=== PATIENT | female | born 1970 | race Caucasian/White ===

== ENCOUNTER 2022-07-15 13:28 | Outpatient (CLI) | payer OTHER, SELFPAY ==
--- NOTE | 2022-07-15 13:30 | DI.RAD.S_ITS ---
PROCEDURE: PAIN C/T INTERLAMINAR INJECT INDICATIONS: SPINAL STENOSIS COMPARISON: [facility], CR, XR CERVICAL SPINE WITH FLEXION EXTENSION, 06/18/2021, 15:13. FINDINGS: Fluoroscopic spot filming was performed to verify placement of a spinal needle at the C7-T1 level, as labeled on the films. Appropriate location of the needle tip was confirmed by injection of iodinated contrast. IMPRESSION: Intraprocedural examination within normal limits. Dictated by: Saul Luo M.D. on 07/15/2022 at 14:06 Approved by: Saul Luo M.D. on 07/15/2022 at 14:07
[2022-07-15 13:53] VITALS: BP 144/88; PULSE 69; RESP 18; TEMP 36.3; O2SAT 99
[2022-07-15 14:10] VITALS: BP 143/88; PULSE 67; RESP 16; O2SAT 100
[2022-07-15 14:15] VITALS: BP 145/91; PULSE 74; RESP 18; O2SAT 100
[2022-07-15] MEDS: IOPAMIDOL 15 ML VIAL 3 ML INJ (14:18)
[2022-07-15] MEDS: DEXAMETHASONE 10 MG/ML VIAL 20 MG INJ (14:18)
[2022-07-15 14:19] VITALS: BP 155/91; PULSE 69; RESP 16; O2SAT 100
[2022-07-15 14:25] VITALS: BP 162/91; PULSE 65; RESP 20; O2SAT 99
--- NOTE | 2022-07-15 16:23 | P.PCN_ITS ---
Date/Time/Diagnoses Date of procedure: 07/15/22 Time of procedure: 14:00 Procedure Notes Physician: Chuckie Chi Total Fluoroscopy time (seconds): 17 Total sedation minutes: 0 Procedure in detail & Post-procedure care: C7-T1 Interlaminar Epidural Steroid Injection Indications: Nnia is presenting for treatment of cervical radiculopathy with neck and arm pain. Preoperative diagnosis: Bilateral cervical radiculopathy Postoperative diagnosis: Same Focused Examination: Ax3 Mood and affect are normal Vital Signs: VSS ASA: 2 Consent: Following review of allergies and potential side effects/complications, including, but not necessarily limited to, infection, allergic reaction, local tissue breakdown, stroke, temporary or permanent nerve injury, paralysis, and possible , the patient indicated that they understood and agreed to proceed.? An informed consent document was signed by the patient, witnessed by a nurse and placed in the patient's chart.? Additionally, other treatment options including medications and physical therapy were reviewed with the patient. All questions were answered. Site was then marked. Anesthesia: Local Position: Prone Monitoring: NIBP, Pulse oximetry, 3 lead EKG Needle used: 18 G 3.5? Tuohy Contrast: Isovue 300-M 2 mL Injectate: Dexamethasone 15 mg followed by Normal Saline 1.5 mL Technique: The skin was prepped with chloraprep and then draped in a sterile fashion. Time out was performed as per protocol. Oxygen applied via NC. Skin and subcutaneous structures of the needle entry site was then infiltrated with 3 mL of lidocaine 1%. Under AP, lateral and contralateral oblique fluoroscopic control, the Tuohy needle was guided into the C7-T1 epidural space. The space was accessed with loss of resistance technique. Isovue 300-M was then injected and the spread was consistent with the epidural space. There was no evidence for intravascular or intrathecal uptake. After negative aspiration, the above- mentioned injectate was then slowly administered and the needle withdrawn. The patient expressed no unusual discomfort or paresthesias during the injection. Band-Aids applied to injection sites. EBL: less than 1 ml Complications: None Post Procedure: Patient was taken to the recovery and monitored. The patient was provided a Pain Log to continue to record the patient's response to the target- specific procedure prior to the patient's follow-up visit with the referring physician. Patient was stable upon discharge. Detailed post procedure instructions were provided. Patient was asked to call in the event of worsening pain, fever, weakness, numbness or bladder or bowel incontinence.
== END 2022-07-15 14:40 | disposition home or self-care (01) ==
LOC: RAD 13:30
PROVIDERS: PCP Family Medicine; Referring Provider Anesthesiology; Visit Provider Anesthesiology
DX: M54.12 Radiculopathy, cervical region (principal)
CPT/HCPCS: 62321; J1100; J2250

== ENCOUNTER → 2022-08-10 08:37 | Outpatient (CLI) | payer OTHER, SELFPAY ==
--- NOTE | 2022-08-10 08:39 | DI.RAD.S_ITS ---
PROCEDURE: XR SHOULDER RT MIN 2V INDICATIONS: Right shoulder pain TECHNIQUE: 3 views of the shoulder were acquired. COMPARISON: None. FINDINGS: Bones: No fractures or dislocations. Question subtle ill-defined lucencies in the humeral neck and in the scapula subjacent to the glenoid. Visualized ribs appear intact. Soft tissues: No suspicious soft tissue calcifications. IMPRESSION: 1. No evidence acute bony abnormality. 2. Question subtle lucencies in the humeral neck and scapula. Comment: Recommend shoulder MRI with and without contrast. Dictated by: Ameya Frausto M.D. on 08/10/2022 at 10:25 Approved by: Ameya Frausto M.D. on 08/10/2022 at 10:31
== END ==
PROVIDERS: PCP Family Medicine; Referring Provider Anesthesiology; Visit Provider Anesthesiology
DX: M25.511 Pain in right shoulder (principal)
CPT/HCPCS: 73030

== ENCOUNTER → 2022-08-24 07:36 | Outpatient (CLI) | payer OTHER, SELFPAY ==
--- NOTE | 2022-08-24 07:45 | DI.MRI.S_ITS ---
PROCEDURE: MR SHOULDER RT WO/W CON INDICATIONS: Right shoulder pain, humeral lucencies on XR TECHNIQUE: Noncontrast oblique coronal T1 spin echo and T2 fast spin echo with fat saturation, oblique sagittal T1 spin echo and T2 fast spin echo with fat saturation, axial T1 spin echo and T2 fast spin echo with fat saturation through the shoulder. Post-contrast oblique coronal, oblique sagittal, and axial T1 spin echo with fat saturation through the shoulder. COMPARISON: [facility], CR, XR SHOULDER RT MIN 2V, 08/10/2022, 8:42. FINDINGS: Image quality: Excellent. Rotator cuff: Low-grade articular and bursal surface partial thickness tear involving distal supraspinatus at its insertion on the humeral head is seen extending to musculotendinous junction. Distal infraspinatus and subscapularis tendinosis is seen. No full-thickness rotator cuff tendon rupture. Sagittal images demonstrate no significant muscle atrophy. Bones and bursae: Nonspecific subcortical cystic changes are noted in greater tuberosity of humeral head. No suspicious bone marrow enhancement. No bone marrow contusions or fractures. [id number] acromioclavicular joint osteoarthritic changes are seen with joint space narrowing and downward osteophyte formation depressing the musculotendinous junction of supraspinatus. Capsule and soft tissues: No suspicious soft tissue enhancement. Labrum is grossly intact. The long head of the biceps tendon demonstrates normal location and morphology. The rotator interval appears normal, without fibrosis. The coracohumeral ligament is normal in thickness. IMPRESSION: 1. [id number] acromioclavicular joint osteoarthritis. No marrow edema. No fracture or dislocation. Nonspecific subcortical cystic changes in greater tuberosity of humeral head. No suspicious intraosseous lesion or abnormal intraosseous enhancement. Radiograph finding likely represent artifacts. 2. Low-grade articular and bursal surface partial thickness tear involving distal supraspinatus extending to musculotendinous junction. Distal infraspinatus and subscapularis tendinosis. No full-thickness rotator cuff tendon rupture. 3. No enhancing soft tissue mass. 4. No evidence of focal labral tear. Dictated by: Rl Chin M.D. on 08/24/2022 at 9:30 Approved by: Rl Chin M.D. on 08/24/2022 at 9:40
== END ==
PROVIDERS: PCP Family Medicine; Referring Provider Anesthesiology; Visit Provider Anesthesiology
DX: M75.111 Incomplete rotator cuff tear or rupture of right shoulder, not specified as traumatic (principal); M19.011 Primary osteoarthritis, right shoulder; M25.511 Pain in right shoulder
CPT/HCPCS: 73223; A9579